=== PATIENT | male | born 1975 | race Caucasian/White ===

== ENCOUNTER 2021-06-20 08:18 | Emergency (ER) | payer BC ==
[2021-06-20] MEDS ORDERED: MECLIZINE HCL25 MG PO (10:06)
[2021-06-20] MEDS ORDERED: ZOFRAN4 MG PO (10:06)
[2021-06-20] MEDS ORDERED: MEDROL DOSEPAK 24 MG PO (10:11)
== END 2021-06-20 10:13 | disposition home or self-care (01) ==
LOC: ER1 08:18
DX: H93.12 Tinnitus, left ear (principal)
CPT/HCPCS: 70450; 99284